=== PATIENT | male | born 1985 | race Caucasian/White ===

== ENCOUNTER 2018-07-19 22:17 | Emergency (ER) | payer SELFPAY ==
--- NOTE | 2018-07-19 22:23 | ED Physician Documentation ---
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 Pt has L shoulder pain that has been worsening over the past week. No acute injury. Pt has been taking large amounts of ibu profen.) - ROS CONST: no problems EYES/ENT: none CVS/RESP: none GI/: none MS/SKIN/LYMPH: other (L shoulder pain) - PAST HX Past History: other (seizure, ADHD) Surgeries/Procedures: other (hernia repair) Allergies/Adverse Reactions: Allergies Allergy/AdvReac Type Severity Reaction Status Date / Time No Known Allergies Allergy Unverified 07/19/18 22:35 Home Medications: Ambulatory Orders Medication Instructions Recorded Dextroamphetamine/Amphetamine 30 mg PO BID 07/19/18 [Adderall 30 mg Tablet] Gabapentin [Neurontin] 300 mg PO TID 07/19/18 Ibuprofen [Motrin Ib] 800 mg PO Q8 PRN 07/19/18 - SOCIAL HX Smoking History: cigarettes - FAMILY HX Family History: No - REVIEWED ASSESSMENTS Nursing Assessment Reviewed: Yes Vitals Reviewed: Yes Progress - Progress Progress: Norflex 60 mg IM in ER Sling D/c inst: Ibuprofen 200 mg. Take 3 or 4 tablets by mouth every 8 hours with food. Do no take more than 800 mg every 8 hours. Tylenol 325 mg. May take 2 every 6 hours. Rx Flexeril 10 mg. Take one every 8 hours as needed for muscle spasm. General Adult Physical Exam - PHYSICAL EXAM GENERAL APPEARANCE: moderate distress NECK: normal inspection, supple RESPIRATORY: no resp distress, chest non-tender, breath sounds normal CVS: reg rate & rhythm, heart sounds normal BACK: normal inspection, no CVA tenderness SKIN: warm/dry, normal color EXTREMITIES: other (L shoulder tenderness; FROM; muscle tension over scapula) NEURO: oriented X3, motor nml, sensation nml Discharge Clincal Impression: L shoulder pain, Musculoskeletal pain Referrals: Primary Doctor,No [Primary Care Provider] - Condition: Good Disposition: 01 HOME, SELF-CARE Decision to Admit: NO Decision Time: 23:10
[2018-07-19] MEDS: ORPHENADRINE CITRATE 60 MG/2ML IM ONE (23:06)
[2018-07-19] MEDS: IBUPROFEN 200 MG TABLET PO ONE (23:16)
[2018-07-19] MEDS: IBUPROFEN 400 MG TABLET PO ONE (23:18)
[2018-07-19 23:21] VITALS: BP 146/72
--- NOTE | 2018-07-20 06:36 | Diagnostic Imaging Report ---
JADE CASTILLO [facility] [address] [facility] [address] [address] Report Submission Date: Jul 19, 2018 10:55:10 PM CDT Patient Study Name: REFUGIO HERNANDEZ Date: Jul 19, 2018 10:33:24 PM CDT Modality Type: DX Gender: M Description: SHOULDER : 81 Institution: [facility] Physician: JADE CASTILLO Left shoulder, three views. History: LEFT SHOULDER PAIN, PT STATES HE WAS PULLING TRIM OFF THE WALL EARLY TODAY AND THE PAIN GRADUALLY GOT WORSE Findings: The osseous structures are intact without acute fracture. The joint space and alignment are normal. There is no soft tissue swelling. Impression: 1. No acute osseous abnormality. Electronically signed on Jul 19, 2018 10:55:10 PM CDT by: Drew GEORGE
== END 2018-07-19 23:15 | disposition home or self-care (01) ==
LOC: ED 22:17
DX: M25.512 Pain in left shoulder (principal); M79.1 Myalgia
CPT/HCPCS: 73030; J2360; 96372; 99283

== ENCOUNTER 2018-07-20 15:21 | Emergency (ER) | payer SELFPAY ==
[2018-07-20 15:46] VITALS: BP 146/107
[2018-07-20] MEDS: KETOROLAC TROMETHAMINE 60 MG/2 ML VIAL IM ONE (16:09)
[2018-07-20] MEDS: KETOROLAC TROMETHAMINE 60 MG/2 ML VIAL ONE (16:09)
--- NOTE | 2018-07-20 16:37 | ED Physician Documentation ---
General Adult - HISTORIAN Historian: patient - HPI Stated Complaint: L shoulder pain Chief Complaint: General Adult Further Comments: yes (33 year old male patient presents with sling to left arm. Patient c/o left shoulder pain not improving. Patient was seen in ER on 07/19/2018. Did not fill flexeril prescription. States he took 1 ibuprofen this morning with no improvement.) - ROS CONST: no problems EYES/ENT: none CVS/RESP: none GI/: none MS/SKIN/LYMPH: none NEURO/PSYCH: denies: headache - PAST HX Past History: none Allergies/Adverse Reactions: Allergies Allergy/AdvReac Type Severity Reaction Status Date / Time No Known Allergies Allergy Verified 07/20/18 15:32 Home Medications: Ambulatory Orders Medication Instructions Recorded Dextroamphetamine/Amphetamine 30 mg PO BID 07/19/18 [Adderall 30 mg Tablet] Gabapentin [Neurontin] 300 mg PO TID 07/19/18 - SOCIAL HX Smoking History: cigarettes Drug Use: cocaine, methamphetamines - FAMILY HX Family History: No - VITAL SIGNS Vital Signs: Vital Signs Temp Pulse Resp BP Pulse Ox 97.2 F L 78 15 146/107 07/20/18 15:30 07/20/18 15:30 07/20/18 15:30 07/20/18 15:30 - REVIEWED ASSESSMENTS Nursing Assessment Reviewed: Yes Vitals Reviewed: Yes Progress - Progress Progress: Reviewed patient's chart from yesterday. Patient extremely anxious while in ER, difficultly sitting still. UDS - positive cocaine, meth, amphetamines, THC Toradol IM given in Er. Reviewed discharge instructions from last night with patient. Requested work excuse for today and yesterday, states he did not get one. 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 Requesting multiple days off work. ED Results Lab/Radiology - Orders Orders: ED Orders Category Date Time Status Urine drug screen [DRUG SCREEN URINE MEDICAL ONLY] Stat Lab 07/20/18 15:43 Ordered Ketorolac Tromethamine [Toradol] Med 07/20/18 16:03 Discontinued 60 mg .ROUTE .STK-MED ONE Ketorolac Tromethamine [Toradol] Med 07/20/18 16:04 Once 60 mg IM NOW ONE General Adult Physical Exam - PHYSICAL EXAM GENERAL APPEARANCE: anxious EENT: eye inspection normal, CHANTE RESPIRATORY: no resp distress CVS: reg rate & rhythm, heart sounds normal, equal pulses ABDOMEN: soft EXTREMITIES: no evidence of injury, no edema, tenderness (left shoulder; sling in place) NEURO: oriented X3, CN's nml as tested, motor nml, sensation nml, mood/affect nml Discharge Clincal Impression: Poly-drug misuser Left shoulder pain Qualifiers: Chronicity: acute Qualified Code(s): M25.512 - Pain in left shoulder Referrals: Primary Doctor,No [Primary Care Provider] - 2 Days Additional Instructions: Ice Rest Elevation You may use Tylenol every 4hour as needed for pain. Limit your dose to less than 4 G per day. Alternate with Ibuprofen 600-800mg three times a day with food as needed. Do not take for more than 5 days in a row. If you are continuing to have significant pain on day 3-4; see your PCP for re- evaluation and MRI. Condition: Stable Disposition: 01 HOME, SELF-CARE Decision to Admit: NO Decision Time: 16:36
[2018-07-21 06:14] LABS: CANNABINOIDS NON NEGATIVE ng/mL (< 50); METHYLENEDIOXYMETHAMPHETAMINE NEGATIVE ng/mL (<500)
== END 2018-07-20 16:43 | disposition home or self-care (01) ==
LOC: ED 15:21
DX: M25.512 Pain in left shoulder (principal); F19.10 Other psychoactive substance abuse, uncomplicated
CPT/HCPCS: 80377; J1885; 96372; 99283; G0481

== ENCOUNTER 2018-08-03 09:44 | Emergency (ER) | payer SELFPAY ==
--- NOTE | 2018-08-03 10:41 | ED Physician Documentation ---
General Adult - HISTORIAN Historian: patient - HPI Stated Complaint: Generalized rash Chief Complaint: General Adult Further Comments: yes (33 year old male patient presents with complaints of rash and wounds on arms and legs. Unsure of onset; denies bug bites.) - ROS CONST: recent illness EYES/ENT: none CVS/RESP: none GI/: none MS/SKIN/LYMPH: none NEURO/PSYCH: denies: headache, fainting, dizziness, tingling, numbness, difficulty walking, difficulty with speech, anxiety, depression, other - PAST HX Past History: other (shoulder injury; ADHD - "out of adderall", seizures treated with neurontin) Allergies/Adverse Reactions: Allergies Allergy/AdvReac Type Severity Reaction Status Date / Time No Known Allergies Allergy Verified 08/03/18 10:14 Home Medications: Ambulatory Orders Medication Instructions Recorded Dextroamphetamine/Amphetamine 20 mg PO BID 08/03/18 [Adderall 20 mg Tablet] Gabapentin [Neurontin] 800 mg PO BID 08/03/18 Mupirocin [Bactroban] 1 appl TP BID #1 tube 08/03/18 Sulfamethoxazole/Trimethoprim 1 each PO BID #14 tab 08/03/18 [Bactrim Ds] - SOCIAL HX Smoking History: cigarettes Drug Use: cocaine, methamphetamines - FAMILY HX Family History: No - VITAL SIGNS Vital Signs: Vital Signs Temp Pulse Resp BP Pulse Ox 98.7 F 116 H 18 115/81 95 08/03/18 09:44 08/03/18 09:44 08/03/18 09:44 08/03/18 09:44 08/03/18 09:44 - REVIEWED ASSESSMENTS Nursing Assessment Reviewed: Yes Vitals Reviewed: Yes Progress - Progress Progress: Patient extremely anxious, difficulty sitting still. Patient reports history of MRSA. Reviewed previous ER visits 07/19/2018 and 07/20/2018. Girlfriend checked into ER at same time for c/o rash. Girlfriend reports daily use of methamphetamines by herself and patient for the past 2 weeks. General Adult Physical Exam - PHYSICAL EXAM GENERAL APPEARANCE: anxious EENT: eye inspection normal, CHANTE RESPIRATORY: no resp distress, chest non-tender, breath sounds normal CVS: heart sounds normal, equal pulses, no murmur, no gallop, PMI nml, no JVD, no friction rub, tachycardia ABDOMEN: soft, no organomegaly, normal bowel sounds, no abdominal bruit, no distension SKIN: warm/dry, normal color, other (multiple areas of folliculitis on arms and legs) NEURO: oriented X3, motor nml, sensation nml, other (anxious) Discharge Clincal Impression: Poly-drug misuser, Folliculitis Prescriptions: Mupirocin [Bactroban] 1 appl TP BID #1 tube Sulfamethoxazole/Trimethoprim [Bactrim Ds] 1 each PO BID #14 tab Referrals: Primary Doctor,No [Primary Care Provider] - 2 Days Condition: Stable Disposition: 01 HOME, SELF-CARE Decision to Admit: NO Decision Time: 10:41
[2018-08-03 11:20] VITALS: BP 116/78
== END 2018-08-03 10:55 | disposition home or self-care (01) ==
LOC: ED 09:44
DX: L73.9 Follicular disorder, unspecified (principal); F19.10 Other psychoactive substance abuse, uncomplicated
CPT/HCPCS: 99283

== ENCOUNTER 2018-12-11 12:28 | Emergency (ER) | payer SELFPAY ==
[2018-12-11 13:55] VITALS: BP 128/106
[2018-12-11] MEDS ORDERED: LIDOCAINE HCL 1% PF 20MG/2ML AMP ONE (13:58)
[2018-12-11] MEDS ORDERED: LIDOCAINE HCL 2% VISC. ORAL 300MG/15ML UDC ONE (14:05)
[2018-12-11] MEDS ORDERED: HYDROcodone /APAP 5/325 1 EACH TABLET PO ONE (14:11)
--- NOTE | 2018-12-11 14:14 | ED Physician Documentation ---
General Adult - HISTORIAN Historian: patient - HPI Stated Complaint: Dental pain Chief Complaint: General Adult Onset: days ago Timing: worse Severity: moderate Further Comments: yes (Pt is a 33 yo male with dental pain that has been going on for a week. Pt fx'd his tooth several weeks ago. Pt has been unable to sleep.) - ROS CONST: no problems EYES/ENT: other (dental pain) CVS/RESP: none GI/: none MS/SKIN/LYMPH: none - PAST HX Past History: none Allergies/Adverse Reactions: Allergies Allergy/AdvReac Type Severity Reaction Status Date / Time No Known Allergies Allergy Verified 08/03/18 10:14 Home Medications: Ambulatory Orders Medication Instructions Recorded Dextroamphetamine/Amphetamine 20 mg PO BID 08/03/18 [Adderall 20 mg Tablet] Gabapentin [Neurontin] 800 mg PO BID 08/03/18 Mupirocin 2% Oint. [Bactroban] 1 appl TP BID #1 tube 08/03/18 Sulfamethoxazole/Trimethoprim 1 each PO BID #14 tab 08/03/18 [Bactrim Ds] - SOCIAL HX Smoking History: cigarettes - FAMILY HX Family History: No - VITAL SIGNS Vital Signs: Vital Signs Temp Pulse Resp BP Pulse Ox 98.0 F 90 20 128/106 100 12/11/18 13:15 12/11/18 13:15 12/11/18 13:15 12/11/18 13:15 12/11/18 13:15 - REVIEWED ASSESSMENTS Nursing Assessment Reviewed: Yes Vitals Reviewed: Yes Progress - Progress Progress: gum injected with 1% lidocaine above L upper molar Rx [place] (5/325). Take one or two tablets by mouth every 4 to 6 hours as needed for moderate to severe pain. Rx Penicillin VK 500 mg. Take one every 8 hours for 10 days. f/u dentist Phamacy called re: Pen VK expense and script was changed to Rx Keflex 500 mg po tid x 10 days. ED Results Lab/Radiology - Orders Orders: ED Orders Category Date Time Status HYDROcodone /APAP 5/325 [[place] 5/325] Med 12/11/18 14:11 Once 2 each PO NOW ONE Lidocaine 2%Visc 15ml [Xylocaine] Med 12/11/18 14:05 Discontinued 300 mg .ROUTE .STK-MED ONE Lidocaine HCl/Pf [Lidocaine HCl 1% Ampul] Med 12/11/18 13:58 Discontinued 10 mg .ROUTE .STK-MED ONE General Adult Physical Exam - PHYSICAL EXAM GENERAL APPEARANCE: moderate distress EENT: other (dental pain/tenderness L upper molar) NECK: normal inspection, supple CVS: reg rate & rhythm, heart sounds normal BACK: normal inspection, no CVA tenderness SKIN: warm/dry, normal color EXTREMITIES: non-tender, normal range of motion, no evidence of injury NEURO: oriented X3, motor nml, sensation nml Discharge Clincal Impression: Pain, dental Referrals: Primary Doctor,No [Primary Care Provider] - Condition: Stable Disposition: 01 HOME, SELF-CARE Decision to Admit: NO Decision Time: 14:14
== END 2018-12-11 14:25 | disposition home or self-care (01) ==
LOC: ED 12:28
DX: K08.89 Other specified disorders of teeth and supporting structures (principal); Z72.0 Tobacco use
CPT/HCPCS: 99282